=== PATIENT | female | born 1990 | race Caucasian/White ===

== ENCOUNTER 2017-09-07 07:10 | Inpatient (IN) | payer SELFPAY, OTHER ==
[2017-09-07] MEDS ORDERED: OXYTOCIN 30 UNITS/LR 500 ML IV (07:30)
[2017-09-07] MEDS ORDERED: MISOPROSTOL 200 MCG TAB PR (07:30)
[2017-09-07] MEDS ORDERED: BUTORPHANOL 2 MG INJ IV (07:30)
[2017-09-07] MEDS ORDERED: IBUPROFEN 600 MG TAB PO (07:30)
[2017-09-07] MEDS ORDERED: METHYLERGONOVINE 0.2 MG INJ IM (07:30)
[2017-09-07] MEDS ORDERED: LIDOCAINE 1% (MPF) 30 ML INJ INJ (07:30)
[2017-09-07] MEDS ORDERED: CARBOPROST 250 MCG INJ IM (07:30)
[2017-09-07 08:13] LABS: ADD MAN DIFF? NO
[2017-09-07 08:16] LABS: BASOPHILS % 0.2 % (0.0-2.0); EOSINOPHILS # 0.1 10^3/ul (0.0-0.5); EOSINOPHILS % 0.8 % (0.0-7.0); HEMATOCRIT 33.9 % (37.0-47.0); HEMOGLOBIN 11.6 g/dl (12.0-16.0); LYMPHOCYTES # 2.7 10^3/ul (0.8-2.9); LYMPHOCYTES % 29.9 % (15.0-51.0); MEAN CORPUSCULAR HEMOGLOBIN 30.2 pg (29.0-33.0); MEAN CORPUSCULAR HGB CONC 34.2 g/dl (32.0-37.0); MEAN CORPUSCULAR VOLUME 88.3 fl (82.0-101.0); MEAN PLATELET VOLUME 9.9 fl (7.4-10.4); MONOCYTE # 0.7 10^3/ul (0.3-0.9); MONOCYTES % 7.7 % (0.0-11.0); NEUTROPHIL # 5.4 10^3/ul (1.6-7.5); NEUTROPHILS % 60.6 % (39.0-77.0); PLATELET COUNT 331 10^3/UL (140-415); RED BLOOD COUNT 3.84 10^6/ul (4.20-5.40); RED CELL DISTRIBUTION WIDTH 13.2 % (11.5-14.5)
[2017-09-07 08:16] LABS: WHITE BLOOD COUNT 8.9 10^3/ul (4.8-10.8)
[2017-09-07] MEDS: LACTATED RINGER'S 1,000 ML IV ×4 (08:26→17:19)
[2017-09-07 08:35] LABS: ADD UMIC YES; UR ASCORBIC ACID NEGATIVE (NEGATIVE); UR BACTERIA FEW /HPF (NONE SEEN); UR BILIRUBIN (Dip) NEGATIVE (NEGATIVE); UR BLOOD (Dip) NEGATIVE (NEGATIVE); UR CLARITY SLIGHTLY CLOUDY (CLEAR); UR COLOR YELLOW (YELLOW); UR GLUCOSE (Dip) NEGATIVE (NEGATIVE); UR KETONES (Dip) NEGATIVE (NEGATIVE); UR LEUKOCYTE ESTERASE (Dip) TRACE Leu/ul (NEGATIVE); UR MUCUS FEW /HPF (NONE SEEN); UR NITRITE (Dip) NEGATIVE (NEGATIVE); UR RBC 2 /HPF (0-5); UR SPECIFIC GRAVITY (Dip) 1.016 (1.003-1.030); UR SQUAMOUS EPITHELIAL CELL FEW /HPF (FEW); UR TOTAL PROTEIN (Dip) NEGATIVE (NEGATIVE); UR UROBILINOGEN (Dip) NEGATIVE (NEGATIVE); UR WBC 4 /HPF (0-5)
[2017-09-07] MEDS: AMPICILLIN 2 GM/NS (PMX) 100 ML IV (08:39)
[2017-09-07 09:03] LABS: HEPATITIS B SURFACE ANTIGEN NEGATIVE (NEGATIVE)
[2017-09-07 09:13] LABS: INR 0.93; PROTIME 12.6 Sec (11.9-14.9)
[2017-09-07 09:14] LABS: PARTIAL THROMBOPLASTIN TIME 28.5 Sec (25.0-35.0)
[2017-09-07 09:17] LABS: HIV 1&2 ANTIBODY NEGATIVE (NEGATIVE)
[2017-09-07] MEDS: DINOPROSTONE 10 MG VAG SUPP VAG (09:38)
[2017-09-07 09:42] LABS: URIC ACID 2.8 mg/dl (3.1-7.9)
[2017-09-07 10:44] LABS: AMPHETAMINE/METHAMPHETAMINE Negative (NEGATIVE); BARBITURATES Negative (NEGATIVE); BENZODIAZEPINES Negative (NEGATIVE); CANNABINOIDS Negative (NEGATIVE); COCAINE Negative (NEGATIVE); OPIATES Negative (NEGATIVE)
[2017-09-07] MEDS: AMPICILLIN 1 GM/NS (PMX) 50 ML IV ×3 (13:07→21:32)
[2017-09-07 17:30] LABS: RAPID PLASMA REAGIN NONREACTIVE (NR)
[2017-09-07 20:17] LABS: AMPHETAMINE/METHAMPHETAMINE Negative (NEGATIVE); BARBITURATES Negative (NEGATIVE); BENZODIAZEPINES Negative (NEGATIVE); CANNABINOIDS Negative (NEGATIVE); COCAINE Negative (NEGATIVE); OPIATES Negative (NEGATIVE)
[2017-09-07] MEDS: OXYTOCIN 30 UNITS/LR 500 ML IV (23:59)
[2017-09-08] MEDS: AMPICILLIN 1 GM/NS (PMX) 50 ML IV ×6 (02:10→21:59)
[2017-09-08] MEDS: LACTATED RINGER'S 1,000 ML IV ×4 (02:10→22:58)
[2017-09-08 12:32] LABS: RUBELLA ANTIBODY - IGG 2.17 index; RUBELLA ANTIBODY - IGM <20.00 AU/mL
[2017-09-08] MEDS ORDERED: FENTAnyl 2MCG/ML-ROPIV 0.2% 100 ML (23:13)
[2017-09-09] MEDS ORDERED: DIPHENHYDRAMINE 50 MG INJ IV (00:30)
[2017-09-09] MEDS ORDERED: TRIMETHOBENZAMIDE 100 MG/ML VIAL IM (00:30)
[2017-09-09] MEDS ORDERED: NALOXONE (0.4 MG/ML) INJ IV (00:30)
[2017-09-09] MEDS ORDERED: ONDANSETRON 4 MG INJ IV (00:30)
[2017-09-09] MEDS ORDERED: FENTAnyl 2MCG/ML-ROPIV 0.2% 100 ML BAG EPI (00:30)
[2017-09-09] MEDS: OXYTOCIN 30 UNITS/LR 500 ML IV ×2 (00:31→00:51)
[2017-09-09] MEDS: MINERAL OIL LIGHT 10 ML VIAL TOP (01:13)
[2017-09-09] MEDS: AMPICILLIN 1 GM/NS (PMX) 50 ML IV (01:13)
[2017-09-09] MEDS: LACTATED RINGER'S 1,000 ML IV* ×2 (03:04→05:15)
[2017-09-09] MEDS ORDERED: OXYTOCIN 30 UNITS/LR 500 ML IV (03:30)
[2017-09-09] MEDS ORDERED: DIBUCAINE 1% 30 GM OINT PR (03:30)
[2017-09-09] MEDS ORDERED: CARBOPROST 250 MCG INJ IM (03:30)
[2017-09-09] MEDS ORDERED: ACETAMINOPHEN 325 MG TAB PO (03:30)
[2017-09-09] MEDS ORDERED: METHYLERGONOVINE 0.2 MG INJ IM (03:30)
[2017-09-09] MEDS ORDERED: HYDROCODONE/APAP (5/325) TAB PO (03:30)
[2017-09-09] MEDS ORDERED: MISOPROSTOL 200 MCG TAB PR (03:30)
[2017-09-09] MEDS: WITCH HAZEL/GLYCERIN PAD PR (05:12)
[2017-09-09] MEDS: BENZOCAINE 20% 56 ML SPRAY TOP (05:12)
[2017-09-09] MEDS: IBUPROFEN 600 MG TAB PO ×2 (05:12→11:54)
[2017-09-09] MEDS: SENNA/DOCUSATE NA (8.6MG/50MG) TAB PO (10:26)
[2017-09-11] MEDS ORDERED: DIPHTH/TET/ACEL PERTUSS (ADULT) 0.5 ML VIAL IM* (09:00)
== END 2017-09-09 15:20 | disposition home or self-care (01) | DRG 775 ==
LOC: PP1 09-09 02:32 → L-D 07:10
PROVIDERS: Specialist
PROC: 4A1HXCZ Monitoring of Products of Conception, Cardiac Rate, External Approach (ICD-10-PCS; 2017-09-07)
PROC: 3E0P7GC Introduction of Other Therapeutic Substance into Female Reproductive, Via Natural or Artificial Opening (ICD-10-PCS; 2017-09-07)
PROC: 10E0XZZ Delivery of Products of Conception, External Approach (ICD-10-PCS; principal; 2017-09-09)
PROC: 0KQM0ZZ Repair Perineum Muscle, Open Approach (ICD-10-PCS; 2017-09-09)
DX: O48.0 Post-term pregnancy (principal); O70.1 Second degree perineal laceration during delivery; Z37.0 Single live birth; Z3A.40 40 weeks gestation of pregnancy
CPT/HCPCS: 62319; 76815; 80307; 81001; 84560; 85025; 85384; 85610; 85730; 86592; 86703; 86762; 86850; 86900; 86901; 87340; 99464